=== PATIENT | female | born 1975 | race Caucasian/White ===

== ENCOUNTER 2021-09-02 23:05 | Emergency (ER) | payer OTHER ==
[2021-09-03] MEDS ORDERED: Sodium Chloride 0.9% 1,000 ML IV SCH (00:45)
[2021-09-03] MEDS ORDERED: HYDROmorphone 1 MG/ML Syringe IVPUSH STA (00:45)
[2021-09-03] MEDS ORDERED: Ondansetron 4 MG/2 ML SDV IVPUSH ONE (00:45)
[2021-09-03] MEDS ORDERED: Sodium Chloride 0.9% 10 ML SDV FLUSH ONE (02:02)
[2021-09-03] MEDS ORDERED: Diatrizoate Meglumine/Diatrizoate Sodium 37% 120 ML Bottle PO ONE (02:02)
[2021-09-03] MEDS ORDERED: Iopamidol 612 MG/ML 100 ML Bottle IVPUSH ONE (02:02)
== END 2021-09-03 03:49 | disposition home or self-care (01) ==
LOC: JD.ED 23:05
DX: R10.30 Lower abdominal pain, unspecified (principal); I10 Essential (primary) hypertension; E66.9 Obesity, unspecified; Z68.35 Body mass index [BMI] 35.0-35.9, adult; Z88.2 Allergy status to sulfonamides
CPT/HCPCS: 36415; 74177; 80053; 81001; 81025; 83690; 85007; 85027; 96374; 96375; 99284; J1170; J2405; J7030; Q9963; Q9967